=== PATIENT | female | born 1930 | race Hispanic/Latino ===

== ENCOUNTER 2016-12-14 09:46 | Emergency (ER) | payer MEDICARE ==
--- NOTE | 2016-12-14 11:30 | ULT ---
LEFT UPPER EXTREMITY ARTERIAL ULTRASOUND: Date: 12/14/16 COMPARISON: None. HISTORY: Left AV fistula. TECHNIQUE: Multiplanar Beauchamp scale and color Doppler images obtained of a left upper extremity arterial/venous u ltrasound. Spectral analysis of the Doppler waveforms were performed. FINDINGS: The patient has a brachial artery to basilic vein fistula. Normal flow is seen within the fistula. A djacent to the fistula, there is a 9.0 cm slightly hypoechoic collection without internal flow which likely represents a hematoma. IMPRESSION: Hematoma adjacent to the fistula without pseudoaneurysm formation. POS: DAVID
== END 2016-12-14 13:17 | disposition home or self-care (01) ==
LOC: ERS 09:46
DX: M79.81 Nontraumatic hematoma of soft tissue (principal); I10 Essential (primary) hypertension; M19.90 Unspecified osteoarthritis, unspecified site; Z79.899 Other long term (current) drug therapy; Z79.82 Long term (current) use of aspirin
CPT/HCPCS: 93923

== ENCOUNTER 2017-09-28 08:51 | Emergency (ER) | payer MEDICARE ==
[2017-09-28 09:39] LABS: #Eosinphils 0.1 thou/uL (0.0-0.7); #Lymphocytes 0.5 thou/uL (1.20-3.40); #Monocytes 0.7 thou/uL (0.11-0.59); #Neutrophils 7.7 thou/uL (1.40-6.50); %Basophils 0.2 % (0.0-1.0); %Eosinophils 0.9 % (0.0-10.0); %Lymphocytes 5.5 % (21.0-51.0); %Monocytes 7.7 % (0.0-10.0); %Neutrophils 85.6 % (42.0-75.0); Hemoglobin 12.2 g/dL (12.0-16.0); Mean Corpuscular HGB CONC 31.9 g/dL (32.0-36.0); Mean Corpuscular Hemoglobin 31.7 pg (27.0-31.0); Mean Corpuscular Volume 99.3 fL (78.0-98.0); Mean Platelet Volume 8.5 fL (7.4-10.4); Platelet Count 129 thou/uL (130-400); RBC Distribution Width 14.4 % (11.5-14.5); Red Blood Cell (RBC) Count 3.85 mill/uL (4.20-5.40)
[2017-09-28 10:00] LABS: ALT (SGPT) 113 U/L (8-55); AST (SGOT) 93 U/L (5-34); Albumin 3.7 g/dL (3.4-4.8); Alkaline Phosphatase 253 U/L (40-150); Anion Gap 15 mmol/L (10-20); BUN (Urea Nitrogen) 23 mg/dL (9.8-20.1); Bilirubin, Total 0.9 mg/dL (0.2-1.2); Calc. Creatinine Clearance 0 mL/min (70-130); Calcium 9.1 mg/dL (7.8-10.44); Carbon Dioxide 28 mmol/L (23-31); Chloride 98 mmol/L (98-107); Estimated GFR-MDRD 13; Glucose 96 mg/dL (83-110); Potassium 4.1 mmol/L (3.5-5.1); Protein, Total 6.7 g/dL (6.0-8.3); Sodium 137 mmol/L (136-145)
--- NOTE | 2017-09-28 10:18 | RAD ---
AP VIEW CHEST: Date: 09/28/17 INDICATION: History of dialysis patient with chills. COMPARISON: Prior exam dated 11/26/16. FINDINGS: There is stable mild cardiomegaly. There are scattered chronic lung changes that appear similar. Ther e is no definite new focal consolidation or pleural effusion demonstrated. There is healed fracture d eformity of the proximal humerus. There is diffuse osteopenia. IMPRESSION: No definite acute cardiopulmonary abnormality. POS: [facility]
[2017-09-28 10:44] LABS: Bilirubin Negative (Negative); Blood, Urine Negative (Negative); Clarity CLEAR (Clear); Glucose, Urine (Dipstick) 100 mg/dL (Negative); Leukocyte Negative (Negative); Nitrite Negative (Negative); Protein, Urine (Dipstick) 100 mg/dL (Neg-Trace); Specific Gravity, Urine 1.009 (1.002-1.036); Urobilinogen 0.2 mg/dL (0.2-1.0); pH, Urine 8.5 (5.0-9.0)
[2017-09-28 10:48] LABS: Bacteria/HPF None Seen HPF (None Seen); Hyaline Casts/LPF 0-3 HYALINE CAST LPF (0-3 Hyaline); Pathc Cast-AUWi Flag 0.29 (0-2.49); RBC/HPF 0-3 HPF (0-3); Squamous Epithelial 0-3 HPF (0-3); WBC/HPF 0-3 HPF (0-3)
== END 2017-09-28 12:42 | disposition home or self-care (01) ==
LOC: ERS 08:51
DX: R68.83 Chills (without fever) (principal); M19.90 Unspecified osteoarthritis, unspecified site; I13.10 Hypertensive heart and chronic kidney disease without heart failure, with stage 1 through stage 4 chronic kidney disease, or unspecified chronic kidney disease; N18.9 Chronic kidney disease, unspecified; Z99.2 Dependence on renal dialysis; Z79.899 Other long term (current) drug therapy; Z79.82 Long term (current) use of aspirin
CPT/HCPCS: 36415; 71045; 80053; 81003; 81015; 85025

== ENCOUNTER 2018-03-20 18:19 | Emergency (ER) | payer MEDICARE ==
[2018-03-20] MEDS ORDERED: Tranexamic Acid 1,000 MG/10 ML VIAL ONE (19:09)
[2018-03-20 19:39] LABS: #Basophils 0.1 thou/uL (0.0-0.2); #Eosinphils 0.3 thou/uL (0.0-0.7); #Monocytes 0.5 thou/uL (0.11-0.59); #Neutrophils 2.4 thou/uL (1.40-6.50); %Basophils 1.9 % (0.0-1.0); %Eosinophils 7.7 % (0.0-10.0); %Lymphocytes 23.7 % (21.0-51.0); %Monocytes 11.5 % (0.0-10.0); %Neutrophils 55.2 % (42.0-75.0); Mean Corpuscular HGB CONC 31.9 g/dL (32.0-36.0); Mean Corpuscular Hemoglobin 31.6 pg (27.0-31.0); Mean Platelet Volume 8.2 fL (7.4-10.4); Platelet Count 233 thou/uL (130-400); Red Blood Cell (RBC) Count 3.47 mill/uL (4.20-5.40); White Blood Cell (WBC) Count 4.3 thou/uL (4.8-10.8)
[2018-03-20 20:00] LABS: ALT (SGPT) Less than 7 U/L (8-55); AST (SGOT) 12 U/L (5-34); Alkaline Phosphatase 144 U/L (40-150); Anion Gap 15 mmol/L (10-20); BUN (Urea Nitrogen) 25 mg/dL (9.8-20.1); Bilirubin, Total 0.4 mg/dL (0.2-1.2); Calc. Creatinine Clearance 0 mL/min (70-130); Calcium 9.4 mg/dL (7.8-10.44); Carbon Dioxide 29 mmol/L (23-31); Chloride 97 mmol/L (98-107); Estimated GFR-MDRD 12; Globulin 3.1 g/dL (2.4-3.5); Glucose 93 mg/dL (83-110); Potassium 5.1 mmol/L (3.5-5.1); Protein, Total 7.1 g/dL (6.0-8.3); Sodium 136 mmol/L (136-145)
== END 2018-03-20 19:52 | disposition home or self-care (01) ==
LOC: ERS 18:19
DX: T82.838A Hemorrhage due to vascular prosthetic devices, implants and grafts, initial encounter (principal); I10 Essential (primary) hypertension; Z79.899 Other long term (current) drug therapy; Z79.82 Long term (current) use of aspirin; Z99.2 Dependence on renal dialysis
CPT/HCPCS: 36415; 80053; 85025; 99284

== ENCOUNTER 2018-04-22 06:38 | Observation (INO) | payer MEDICARE ==
[2018-04-22 07:59] LABS: #Eosinphils 0.1 thou/uL (0.0-0.7); #Lymphocytes 0.5 thou/uL (1.20-3.40); #Monocytes 0.4 thou/uL (0.11-0.59); %Basophils 0.6 % (0.0-1.0); %Eosinophils 2.3 % (0.0-10.0); %Lymphocytes 8.3 % (21.0-51.0); %Monocytes 6.9 % (0.0-10.0); %Neutrophils 81.8 % (42.0-75.0); Hemoglobin 12.4 g/dL (12.0-16.0); Mean Corpuscular HGB CONC 30.5 g/dL (32.0-36.0); Mean Corpuscular Hemoglobin 30.1 pg (27.0-31.0); Mean Corpuscular Volume 98.6 fL (78.0-98.0); Mean Platelet Volume 9.6 fL (7.4-10.4); Platelet Count 171 thou/uL (130-400); RBC Distribution Width 16.3 % (11.5-14.5); Red Blood Cell (RBC) Count 4.11 mill/uL (4.20-5.40); White Blood Cell (WBC) Count 6.1 thou/uL (4.8-10.8)
--- NOTE | 2018-04-22 08:20 | CT ---
NONCONTRAST CT HEAD: Date: 04/22/18 HISTORY: Altered mental status. COMPARISON: 09/03/13. FINDINGS: There is diminished attenuation of the periventricular white matter, which may be mildly progressed f rom the prior study and is nonspecific, but likely attributable to moderate chronic small vessel isch emic changes. There is no evidence of an acute cortical infarction, hemorrhage, mass effect, or midli ne shift. There are a few linear low density areas seen within the left cerebellar hemisphere, which likely are related to remote infarctions. Diffuse cerebral volume loss is present. The ventricular sy stem is normal in size, shape, and position for the degree of sulcal atrophy. Mucosal thickening is present in each sphenoid sinus. The mastoid air cells are clear. Calvarial stru ctures have a normal appearance. IMPRESSION: 1. No acute intracranial abnormalities demonstrated. 2. Chronic small vessel ischemic changes and cerebral volume loss. 3. 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 4. Sinus disease involving the sphenoid sinuses. POS: [facility]
[2018-04-22 08:22] LABS: ALT (SGPT) 10 U/L (8-55); AST (SGOT) 16 U/L (5-34); Acetaminophen Less than 6.0 mcg/mL (10.0-30.0); Albumin 4.1 g/dL (3.4-4.8); Alcohol Less than 10 mg/dL (Less than 10); Alkaline Phosphatase 165 U/L (40-150); Anion Gap 15 mmol/L (10-20); BUN (Urea Nitrogen) 33 mg/dL (9.8-20.1); Bilirubin, Total 0.7 mg/dL (0.2-1.2); Calc. Creatinine Clearance 0 mL/min (70-130); Calcium 9.8 mg/dL (7.8-10.44); Carbon Dioxide 30 mmol/L (23-31); Chloride 98 mmol/L (98-107); Estimated GFR-MDRD 12; Glucose 93 mg/dL (83-110); Potassium 4.1 mmol/L (3.5-5.1); Protein, Total 7.1 g/dL (6.0-8.3); Salicylate Less than 8.0 mg/dL (15.0-30.0); Sodium 139 mmol/L (136-145)
--- NOTE | 2018-04-22 08:49 | RAD ---
PORTABLE CHEST: 04/22/2018 PROVIDED CLINICAL HISTORY: Altered mental status. COMPARISON: 09/28/2017 FINDINGS: The cardiac and mediastinal silhouette is unchanged in appearance. Vascular calcification involves t he aortic arch. No focal consolidation, pleural fluid, or pneumothorax apparent. Chronic changes in volving both proximal humeri again noted. IMPRESSION: Stable radiographic appearance of the chest. POS: [facility]
[2018-04-22 10:23] LABS: Bilirubin Negative (Negative); Blood, Urine Negative (Negative); Clarity CLEAR (Clear); Glucose, Urine (Dipstick) Negative (Negative); Leukocyte Negative (Negative); Nitrite Negative (Negative); Protein, Urine (Dipstick) 100 mg/dL (Neg-Trace); Urobilinogen 0.2 mg/dL (0.2-1.0)
[2018-04-22 10:25] LABS: Bacteria/HPF None Seen HPF (None Seen); Hyaline Casts/LPF 0-3 HYALINE CAST LPF (0-3 Hyaline); Pathc Cast-AUWi Flag 0.43 (0-2.49); RBC/HPF 0-3 HPF (0-3); Squamous Epithelial 0-3 HPF (0-3); WBC/HPF 0-3 HPF (0-3)
[2018-04-22 10:34] LABS: Amphetamine Not Detected (NotDetected); Barbiturates Screen Not Detected (NotDetected); Benzodiazepine Screen Not Detected (NotDetected); Cocaine Metabolite Screen Not Detected (NotDetected); Medtox Control Line Valid? VALID (VALID); Medtox Reader # READER 4; Methadone Not Detected (NotDetected); Methamphetamine Not Detected (NotDetected); Opiate Screen Not Detected (NotDetected); Oxycodone Screen Not Detected (NotDetected); Phencyclidine (PCP) Not Detected (NotDetected); THC/Cannabinoid Screen Not Detected (NotDetected); Tricyclic Screen Not Detected (NotDetected)
[2018-04-22] MEDS ORDERED: Bacitracin Zinc 1 Packet ONE (11:32)
[2018-04-22 14:07] VITALS: BMI 18.3
[2018-04-22] MEDS ORDERED: Ondansetron ODT 4 MG TAB SL PRN (14:45)
[2018-04-22] MEDS ORDERED: Ondansetron PF 4 MG/2 ML Vial IVP PRN (14:45)
[2018-04-22] MEDS ORDERED: Acetaminophen 325 MG TAB PO PRN (14:45)
--- NOTE | 2018-04-22 15:29 | SS ---
DATE OF ADMISSION: 04/22/2018 DATE OF DISCHARGE: 04/22/2018 HISTORY OF PRESENT ILLNESS: This is an 87-year-old female, who presents to the ER with 2 nights of nightmares. No other complaints of fever, cough, congestion, chest pain, or abdominal pain. She was evaluated by the ER doctor and her workup was found to be completely normal. This included labs as well as chest x-ray, CT scan of the head, blood and urine tests. Family simply wanted to bring her to the hospital. No one is able to take care of her at home. She actually lives alone. [facility], but the family chose to take her home. food and beverage operations manager was called and provided the patient and family with options. Basically, they simply have to call the nursing homes and make arrangements. We recommended that they recall [facility] since they have all her information and go from there. Otherwise, she will follow up with me on Wednesday at 10 a.m. She does have a history of end-stage renal disease, arthritis, hypertension, diabetes, and chronic kidney disease. They are welcome to return to the emergency room for any exacerbations. However, at this time, she will be discharged home and follow up with me on Wednesday at 10 a.m. PHYSICAL EXAMINATION: VITAL SIGNS: Her vitals have remained stable in the emergency room. GENERAL: She is in no acute distress. HEART: Clear. LUNGS: Clear. ABDOMEN: Soft and nontender. EXTREMITIES: She has no edema. NEUROLOGIC: She is awake, alert, and conversant without any difficulty whatsoever. Job ID: [id number]
[2018-04-22] MEDS ORDERED: Prevnar 13-Val Conj/PF 0.5 ML SYRINGE IM ONE (21:00)
[2018-04-23] MEDS ORDERED: traMADol HCl 50 MG TAB PO PRN (04:29)
[2018-04-23] MEDS: Amlodipine 5 MG TAB PO SCH (08:34)
[2018-04-23] MEDS: Polyethylene Glycol 3350 17 GM Packet PO SCH (08:34)
[2018-04-23] MEDS: Ferrous Sulfate 325 MG TAB PO SCH ×2 (08:34→17:36)
[2018-04-23] MEDS: Aspirin 81 mg Enteric Coated Tablet PO SCH (08:34)
--- NOTE | 2018-04-23 13:07 | PRG ---
DATE OF SERVICE: 04/23/2018 SUBJECTIVE: The patient remains stable. She is in no acute distress. She does not complain of any chest pain, shortness of breath, nausea, or vomiting. Plan is to receive hemodialysis today by Dr. Green. OBJECTIVE: VITAL SIGNS: Temperature 97.3, pulse 87, respirations 14, pulse ox 96, and blood pressure 167/64. HEART: Regular rate and rhythm. LUNGS: Clear. ABDOMEN: Soft, nontender. EXTREMITIES: With no edema. LABORATORY DATA: None. ASSESSMENT: 1. Nightmare/altered mental status, stable. 2. End-stage renal disease, on hemodialysis. 3. Hypertension. 4. Hyperlipidemia. 5. Diabetes. 6. History of colon cancer. 7. History of renal cell cancer. PLAN: 1. Hemodialysis on Wednesday, , and Wednesday. 2. Case Management presently working on placement, possibly Wednesday to [facility]. 3. Continue home medications. 4. We will continue to follow. Job ID: [id number]
[2018-04-23] MEDS: Mirtazapine 15 MG TAB PO SCH (21:04)
[2018-04-24] MEDS: Aspirin 81 mg Enteric Coated Tablet PO SCH (07:53)
[2018-04-24] MEDS: Ferrous Sulfate 325 MG TAB PO SCH ×2 (07:53→16:52)
[2018-04-24] MEDS: Amlodipine 5 MG TAB PO SCH (07:53)
[2018-04-24] MEDS: Polyethylene Glycol 3350 17 GM Packet PO SCH (07:54)
[2018-04-24] MEDS ORDERED: Heparin 1,000 UNITS/ML VIAL ONE (11:11)
--- NOTE | 2018-04-24 11:17 | PRG ---
DATE OF SERVICE: 04/24/2018 SUBJECTIVE: The patient remains stable. No complaints. Shot Packer present. She does not complain of any new pains. I did ask her whether she was willing to go [place] and she was in agreement. I did talk with the son yesterday and they are awaiting placement. OBJECTIVE: VITAL SIGNS: Temperature 97.6, pulse 80, blood pressure 129/61, and respirations 19. GENERAL: No acute distress. HEENT: Clear. HEART: Regular rate and rhythm. LUNGS: Clear. ABDOMEN: Soft. EXTREMITIES: No edema. LABORATORY DATA: None. ASSESSMENT: 1. Nightmare/altered mental status, stable. 2. End-stage renal disease, on hemodialysis. 3. Hypertension. 4. Hyperlipidemia. 5. Diabetes. 6. History of colon cancer. 7. History of renal cell cancer. PLAN: 1. Hemodialysis Wednesday, , and Wednesday. 2. Case Management working on placement. One of the other sons was present today from [place]. I did talk with Jaguar yesterday morning. I informed the son today that Jaguar needs to [place] the [place] and seek [place]. I also talked with Case Management at length yesterday. So between Case Management and the patient, arrangements will need to be made for placement. At this time, the patient remained stable. We will check on her hemodialysis regimen. Job ID: [id number]
[2018-04-24 14:10] LABS: HBSAg Index 0.26 S/CO (0-0.99); Hep B Surf Ag Non-Reactive S/CO (NonReactive)
[2018-04-24] MEDS: Mirtazapine 15 MG TAB PO SCH (20:36)
[2018-04-25 07:51] VITALS: BP 119/65; TEMP 97.1
--- NOTE | 2018-04-25 08:23 | PRG ---
DATE OF SERVICE: 04/25/2018 SUBJECTIVE: The patient continues to do well. She has a good appetite and eating well. OBJECTIVE: VITAL SIGNS: Temp 98.2, pulse 84, respirations 20, pulse ox 95, blood pressure 129/65. GENERAL: No acute distress. HEART: Regular rate and rhythm. LUNGS: Clear. ABDOMEN: Soft. LABORATORY DATA: None. ASSESSMENT: 1. Social admission. Evidently, there is a choral between siblings. The present wardrobe supervisor. 2. Jaguar, is not talking with his brother. His brother is single, retired and does not want to help with the care. Therefore, there is no one left to care for the patient. Presently, she is trying to seek placement. 3. Nightmare/altered mental status, stable. 4. End-stage renal disease, on hemodialysis. 5. Hypertension. 6. Hyperlipidemia. 7. Diabetes. 8. History of colon cancer and renal cell cancer. PLAN: Today continue to seek placement for patient. Job ID: [id number]
[2018-04-25] MEDS: Amlodipine 5 MG TAB PO SCH (08:24)
[2018-04-25] MEDS: Ferrous Sulfate 325 MG TAB PO SCH (08:24)
[2018-04-25] MEDS: Aspirin 81 mg Enteric Coated Tablet PO SCH (08:24)
[2018-04-25] MEDS: Polyethylene Glycol 3350 17 GM Packet PO SCH (08:24)
--- NOTE | 2018-04-25 08:30 | HP ---
ADDENDUM: This is an addendum to the short-stay summary on 04/22/2018. The patient has been changed to admit. ASSESSMENT: 1. Altered mental status/nightmares, stable. 2. End-stage renal disease on hemodialysis, followed by Dr. Green. 3. Primary osteoarthritis of both knees. 4. Hypertension. 5. Hyperlipidemia. 6. Diabetes. PLAN: 1. Continue home medications which include aspirin, amlodipine, mirtazapine, tramadol. 2. Consult Case Management for placement possibly [facility] on Wednesday. Job ID: [id number]
--- NOTE | 2018-04-25 14:27 | DIS ---
DATE OF ADMISSION: 04/22/2018 DATE OF DISCHARGE: 04/25/2018 DISCHARGE DIAGNOSIS: 1. Social admission. 2. Nightmares. 3. End-stage renal disease, on hemodialysis. 4. Hypertension. 5. Hyperlipidemia. 6. Diabetes. 7. History of colon and renal cell cancer. BRIEF HISTORY: This is an 87-year-old [place] female with end-stage renal disease, on hemodialysis, who was brought to the emergency room by her family. She was evaluated by the ER doctor and was discharged home. However, the family did not want to take her home. They wanted her to seek placement elsewhere. The patient did not qualify for placement in a prison at that time. However, the family refused to take her home. HOSPITAL COURSE: The patient was admitted because there was no place for her to go. Further history reveals that the family is presently quarreling. They are having personal issues. Family members do not want to help. The full-time gem expert, Jaguar, is upset as his brother lives in [place], who is retired, who does not work and is not willing to help take care of their mother. Case Management has been consulted. Placement is being attempted. However, I am not sure of the final verdict. Case Management will continue to seek placement for this patient. I have talked with Jaguar on several occasion and Laundry [employer] Counter Clerk has also talked with him. Jaguar was also instructed to call up various nursing homes for possible placement. Job ID: [id number]
== END 2018-04-25 14:15 | disposition home or self-care (01) ==
LOC: ERS 06:38 → ERHOLD 12:07 → T4-A 13:52
PROVIDERS: ADMIT Family Medicine; ATTEND Family Medicine
DX: F51.5 Nightmare disorder (principal); I12.0 Hypertensive chronic kidney disease with stage 5 chronic kidney disease or end stage renal disease; E11.22 Type 2 diabetes mellitus with diabetic chronic kidney disease; N18.6 End stage renal disease; Z99.2 Dependence on renal dialysis; E78.5 Hyperlipidemia, unspecified; M17.0 Bilateral primary osteoarthritis of knee; Z85.038 Personal history of other malignant neoplasm of large intestine; Z85.528 Personal history of other malignant neoplasm of kidney; Z88.2 Allergy status to sulfonamides; Z88.8 Allergy status to other drugs, medicaments and biological substances; Z79.82 Long term (current) use of aspirin; Z79.899 Other long term (current) drug therapy
CPT/HCPCS: 70450; 71045; 80053; 80306; 80307; 83605; 84484; 85025; 87086; 87340; 93005; 96360; 99285; G0378 ×2; 81003; 81015; 90935; G0257; J1644

== ENCOUNTER 2018-10-09 05:39 | Emergency (ER) | payer MEDICARE ==
[2018-10-09 05:59] LABS: #Eosinphils 0.4 thou/uL (0.0-0.7); #Lymphocytes 1.2 thou/uL (1.20-3.40); #Monocytes 0.2 thou/uL (0.11-0.59); %Basophils 0.9 % (0.0-1.0); %Eosinophils 8.2 % (0.0-10.0); %Lymphocytes 25.1 % (21.0-51.0); %Monocytes 4.6 % (0.0-10.0); %Neutrophils 61.3 % (42.0-75.0); Mean Corpuscular HGB CONC 30.2 g/dL (32.0-36.0); Mean Corpuscular Hemoglobin 33.2 pg (27.0-31.0); Platelet Count 264 thou/uL (130-400); RBC Distribution Width 18.4 % (11.5-14.5); White Blood Cell (WBC) Count 4.8 thou/uL (4.8-10.8)
[2018-10-09 06:27] LABS: ALT (SGPT) Less than 7 U/L (8-55); AST (SGOT) 19 U/L (5-34); Albumin 4.1 g/dL (3.4-4.8); Alkaline Phosphatase 143 U/L (40-150); Anion Gap 14 mmol/L (10-20); BUN (Urea Nitrogen) 29 mg/dL (9.8-20.1); Bilirubin, Total 0.7 mg/dL (0.2-1.2); CK (CPK) 11 U/L (29-168); Calc. Creatinine Clearance 0 mL/min (70-130); Calcium 9.7 mg/dL (7.8-10.44); Carbon Dioxide 30 mmol/L (23-31); Chloride 99 mmol/L (98-107); Estimated GFR-MDRD 13; Glucose 86 mg/dL (83-110); Potassium 4.7 mmol/L (3.5-5.1); Protein, Total 7.1 g/dL (6.0-8.3); Sodium 138 mmol/L (136-145)
--- NOTE | 2018-10-09 08:37 | RAD ---
PORTABLE CHEST: HISTORY: Difficulty breathing. COMPARISON: 04/22/2018 exam. FINDINGS: Heart size is enlarged. There are atherosclerotic changes of the aorta. Chronic lung changes are se en. No focal infiltrates or signs of failure. IMPRESSION: Cardiomegaly with chronic lung change. POS: [facility]
== END 2018-10-09 06:52 | disposition home or self-care (01) ==
LOC: ERS 05:39
DX: R06.02 Shortness of breath (principal); I10 Essential (primary) hypertension; Z79.82 Long term (current) use of aspirin; Z79.899 Other long term (current) drug therapy; N19 Unspecified kidney failure; N14.4 Toxic nephropathy, not elsewhere classified
CPT/HCPCS: 71045; 80053; 82550; 83880; 84484; 85025; 93005

== ENCOUNTER 2019-01-27 02:45 | Emergency (ER) | payer MEDICARE | END 2019-01-27 03:50 | disposition home or self-care (01) | LOC: ERS 02:45 | DX: G89.29 Other chronic pain (principal); M25.562 Pain in left knee | CPT/HCPCS: 99281 ==